=== PATIENT | female | born 1955 | race Caucasian/White ===

== ENCOUNTER → 2018-10-15 15:33 | Outpatient (CLI) | payer OTHER | END | disposition home or self-care (01) | LOC: D.RT 15:33 | PROVIDERS: ATTEND Pediatrics | DX: Z02.71 Encounter for disability determination (principal) ==

== ENCOUNTER 2019-01-06 05:05 | Day surgery (SDC) | payer MEDICARE ==
[2019-01-05 09:41] LABS: HEMATOCRIT 39.4 % (36.0-48.0); HEMOGLOBIN 13.5 g/dL (12-16); MCH 30.1 pg (26.0-34.0); MCHC 34.3 g/dL (31.0-37.0); MCV 87.9 fL (80.0-100.0); RBC 4.48 10x6/uL (4.00-5.40); RDW 12.9 % (11.5-14.5); WBC 7.6 10x3/uL (4.8-10.8)
[~2019-01-06] VITALS: Ht 160 cm; Wt 57.2 kg
[~2019-01-06 05:05] MED LIST: ANORO ELLIPTA1 EACH INH; BUPROPION XL150 MG PO; CRESTOR20 MG PO; LOPRESSOR25 MG PO; NEURONTIN 300300 MG PO; TYLENOL W/CODEI1 TAB PO; VENTOLIN HFA INH
[2019-01-06 06:05] VITALS: BP 112/63; Ht 160 cm; Wt 57.2 kg
--- NOTE | 2019-01-06 08:46 | NUR ---
PATIENT NOTED TO HAVING SOME REDNESS ON ARMS, TOP BACK OF LEFT ARM, AND LEFT FOREARM RED AREAS, MELANY.
[2019-01-06] MEDS ORDERED: HYDROCODON-ACE1 EA10 PO (09:19)
--- NOTE | 2019-02-11 09:47 | OP ---
PATIENT NAME: MEKHI PIKE MEDICAL RECORD: [id number] :59 LOCATION:[facility] ADMISSION DATE: SURGEON: BENNY HERRERA MD DATE OF OPERATION: 01/06/2019 PREOPERATIVE DIAGNOSIS: Right L4-L5 lumbar foraminal stenosis and spinal stenosis. POSTOPERATIVE DIAGNOSIS: Right L4-L5 lumbar foraminal stenosis and spinal stenosis. PROCEDURE: Right L4-L5 lumbar laminotomy, medial facetectomy and foraminotomy with METRx retractor. SURGEON: Benny Herrera MD DESCRIPTION AND TECHNIQUE: After induction of general endotracheal anesthesia, the patient was rolled prone on a Omar frame. Lumbar spine was prepped and draped in usual sterile fashion. Fluoroscopic x-ray and spinal needle localized the L4-L5 interspace on the right side. After infiltration of 1:100,000 epinephrine and 1% lidocaine, a stab incision was created with #11 blade. Series of dilators was used to advance a METRx retractor to the L4-L5 interspace on the right side. The level was confirmed with fluoroscopic x-ray. A microscope and Midas Eric drill were used to perform laminotomy, medial facetectomy and foraminotomy at L4-L5 on the right. Hypertrophied ligamentum flavum was removed with Cloward rongeurs. Following this, the L4 and L5 nerve roots were decompressed well. Meticulous hemostasis was maintained throughout the wound. Wound was irrigated with copious amounts of Ancef irrigant solution. The retractor was removed. Fascia was closed with 2-0 Vicryl suture. The subdermal layer was closed with 3-0 Vicryl suture. Skin was closed with federica. A sterile dressing was applied to the wound. The patient was awakened in good condition and taken to recovery. All counts were reported as correct. Estimated blood loss was minimal. TRANSINT:[id number] Voice Confirmation ID: [id number] DOCUMENT ID: [id number] BENNY HERRERA MD at 0947 CC: [id number] DICTATION DATE: 01/27/19621 APPLE CHECKER: 01/27/19 0635 [facility] 01/06/19 [place] [address]
== END 2019-01-06 12:10 | disposition home or self-care (01) ==
LOC: D.OPS 05:05 → D.PAN 07:30 → D.OPS 07:30
PROVIDERS: Anesthesiology; ATTEND Neurological Surgery
DX: M48.061 Spinal stenosis, lumbar region without neurogenic claudication (principal)